=== PATIENT | male | born 1970 ===

== ENCOUNTER 2024-08-13 06:20 | Day surgery (SDC) | payer OTHER, SELFPAY | END 2024-08-13 15:24 | disposition home or self-care (01) | LOC: GI 06:20 | PROVIDERS: ATTENDING PHYSICIAN Internal Medicine | DX: Z12.11 Encounter for screening for malignant neoplasm of colon (principal); D12.0 Benign neoplasm of cecum | CPT/HCPCS: 45385; 88305 ==